=== PATIENT | female | born 1950 | race Caucasian/White ===

== ENCOUNTER 2018-08-11 10:33 | Day surgery (SDC) | payer MEDICARE, OTHER ==
[2018-08-11] VITALS (8 sets, daily range): BP systolic 107–152; BP diastolic 57–82
[~2018-08-11] VITALS: Ht 160 cm; Wt 62.6 kg
[2018-08-11] MEDS ORDERED: fentaNYL/PF 50MCG/1 ML 2ML syringe ONE (11:00)
[2018-08-11] MEDS ORDERED: midazolam 2 mg/2 ml injection ONE ×3 (11:00→13:04)
[2018-08-11] MEDS ORDERED: normal saline 1000ml 1,000 ML IV SCH (11:00)
[2018-08-11] MEDS ORDERED: LIDOcaine 1% w/EPI 1:100,000 30ml vial (MDV) ONE (11:01)
[2018-08-11] MEDS ORDERED: iohexol 350 MG/ML 50ML vial IV ONE (11:01)
[2018-08-11] MEDS ORDERED: vancomycin 1,000mg inj ONE (11:01)
[2018-08-11] MEDS ORDERED: cefazolin/dext.iso 2gm/100ml 100 ML IV ONE (11:04)
[2018-08-11] MEDS ORDERED: RANO500T3 PO (11:10)
[2018-08-11] MEDS ORDERED: NITR0.4T51 SL (11:10)
[2018-08-11] MEDS ORDERED: CHOL100046 PO (11:10)
[2018-08-11] MEDS ORDERED: ISOS30TA9 PO (11:10)
[2018-08-11] MEDS ORDERED: ATOR80TA PO (11:10)
[2018-08-11] MEDS ORDERED: LEVO75TA PO (11:10)
[2018-08-11] MEDS ORDERED: FURO-150 PO (11:10)
[2018-08-11] MEDS ORDERED: CARV6.253 PO (11:10)
[2018-08-11] MEDS ORDERED: LISI2.5T89 PO (11:10)
[2018-08-11] MEDS ORDERED: CLOP75TA35 PO (11:10)
[2018-08-11 11:38] LABS: BASOPHILS # (AUTO) 0.1 X10'3 (0-0.2); BASOPHILS % (AUTO) 1.9 % (0-1); EOSINOPHILS # (AUTO) 0.3 X10'3 (0-0.9); EOSINOPHILS % (AUTO) 6.6 % (0-6); HEMATOCRIT 35.9 % (35.0-45.0); LYMPHOCYTES # (AUTO) 1.3 X10'3 (1.1-4.8); LYMPHOCYTES % (AUTO) 27.6 % (21-51); MEAN CORPUSCULAR HEMOGLOBIN 30.3 PG (27.0-31.0); MEAN CORPUSCULAR HGB CONC 33.4 g/dL (33.0-36.5); MEAN CORPUSCULAR VOLUME 90.7 FL (78-98); MEAN PLATELET VOLUME 8.5 FL (7.4-10.4); MONOCYTES # (AUTO) 0.5 X10'3 (0-0.9); MONOCYTES % (AUTO) 10.1 % (2-12); NEUTROPHILS # (AUTO) 2.5 X10'3 (1.8-7.7); NEUTROPHILS % (AUTO) 53.8 % (42-75); PLATELET COUNT 217 X10'3 (140-440); RED BLOOD COUNT 3.96 X10'6 (4.20-5.60); RED CELL DISTRIBUTION WIDTH 17.7 % (11.5-14.5); WHITE BLOOD COUNT 4.6 X10'3 (4.5-11.0)
[2018-08-11 11:45] LABS: ANION GAP 9 (8-16); BLOOD UREA NITROGEN 20 MG/DL (7-18); BUN/CREATININE RATIO 13.3 (6.6-38.0); CALCIUM 9.6 MG/DL (8.5-10.1); CHLORIDE 101 MMOL/L (99-107); GLUCOSE 135 MG/DL (70-104); POTASSIUM 3.4 MMOL/L (3.5-5.1); SODIUM 137 MMOL/L (135-145); TOTAL CARBON DIOXIDE 26.6 MMOL/L (24-32); eGFR 35 ML/MIN
== END 2018-08-11 16:25 | disposition home or self-care (01) ==
LOC: SSTAY O 10:33
PROVIDERS: ATTEND Internal Medicine Cardiovascular Disease
DX: I42.0 Dilated cardiomyopathy (principal); I49.3 Ventricular premature depolarization; I44.7 Left bundle-branch block, unspecified; I34.0 Nonrheumatic mitral (valve) insufficiency; I10 Essential (primary) hypertension; I25.2 Old myocardial infarction; I25.5 Ischemic cardiomyopathy; I25.10 Atherosclerotic heart disease of native coronary artery without angina pectoris; E78.5 Hyperlipidemia, unspecified; E03.9 Hypothyroidism, unspecified; E11.9 Type 2 diabetes mellitus without complications; Z95.1 Presence of aortocoronary bypass graft
CPT/HCPCS: 33225; 33249; 36415; 80048; 85025; 85610; 93005; 93641; 99152; 99153; C1769; C1882; C1887; C1894; C1895; C1900; J0690; J2250; J3010; J3370; J3490; J7030; Q9967; A4565; A4620